=== PATIENT | male | born 1980 | race African-American/Black ===

== ENCOUNTER 2020-09-26 01:27 | Emergency (ER) | payer MEDICAID ==
[~2020-09-26] VITALS: Ht 177.8 cm; Wt 107.0 kg
[2020-09-26] MEDS ORDERED: FAMOTIDINE 20MG/2ML VIAL IV ONE (02:00)
[2020-09-26] MEDS ORDERED: SODIUM CHLORIDE 0.9% 1,000 ML IV ONE (02:00)
[2020-09-26] MEDS ORDERED: MAGNESIUM/ALUMINUM HYDROXIDE/SIMETHICONE 30ML UDC PO ONE (02:00)
[2020-09-26] MEDS ORDERED: ONDANSETRON HCL 4MG/2ML INJ IV ONE (02:00)
[2020-09-26] MEDS ORDERED: METOCLOPRAMIDE HCL 10MG/2ML VIAL IV ONE (03:00)
[2020-09-26 04:15] VITALS: BP 125/80
== END 2020-09-26 04:16 | disposition home or self-care (01) ==
LOC: ER 01:27
DX: A05.9 Bacterial foodborne intoxication, unspecified (principal); R11.2 Nausea with vomiting, unspecified; I10 Essential (primary) hypertension; G89.29 Other chronic pain; M54.9 Dorsalgia, unspecified; R10.13 Epigastric pain
CPT/HCPCS: 96361; 96374; 96375; 99284; J2405; J2765; J3490; J7030

== ENCOUNTER 2021-04-05 04:25 | Inpatient (IN) | payer MEDICARE ==
[~2021-04-05] VITALS: Ht 348 cm; Wt 107.0 kg
[2021-04-05 05:00] LABS: BASOPHILS % 0.6 % (0.0-2.0); EOSINOPHILS % 3.1 % (0.0-5.0); HEMATOCRIT. 43.7 % (42.0-52.0); HEMOGLOBIN. 14.8 g/dL (14.0-18.0); LYMPHOCYTES % 45.9 % (20.0-50.0); MEAN CORPUSCULAR HEMOGLOBIN 30.3 pg (28.0-32.0); MEAN CORPUSCULAR VOLUME 89.5 fL (80.0-94.0); MEAN PLATELET VOLUME 7.7 fl (7.4-10.4); NEUTROPHILS % 44.4 % (40.0-76.0); PLATELET 296 x1000/uL (130-400); RED BLOOD CELL COUNT 4.89 mill/uL (4.7-6.1); RED CELL DISTRIBUTION WIDTH 13.4 % (11.6-14.6)
[2021-04-05] MEDS ORDERED: IOHEXOL-350 100 ML BOTTLE ONE (05:09)
[2021-04-05 05:14] LABS: CHLORIDE 103 mEq/L (98-107)
[2021-04-05 05:18] LABS: PROTHROMBIN TIME 10.5 sec (9.6-11.0)
[2021-04-05 05:19] LABS: ETHANOL BLOOD < 10 mg/dL
[2021-04-05 05:22] LABS: LDL CHOLESTEROL 118 mg/dL (5-100)
[2021-04-05] MEDS ORDERED: ASPIRIN 325MG TABLET PO NR (06:00)
[2021-04-05 06:28] LABS: CLARITY URINE CLEAR (CLEAR); COLOR URINE YELLOW (YELLOW); KETONES URINE NEGATIVE (NEGATIVE); LEUKOCYTE ESTERASE URINE NEGATIVE (NEGATIVE); NITRITE URINE NEGATIVE (NEGATIVE); OCCULT BLOOD URINE NEGATIVE (NEGATIVE); PROTEIN URINE NEGATIVE (NEGATIVE); SPECIFIC GRAVITY URINE 1.028 (1.005-1.030); UROBILINOGEN URINE 0.2 E.U./dL (0.2-1.0)
[2021-04-05 06:39] LABS: *BENZODIAZEPINES SCREEN URINE NEGATIVE (NEGATIVE)
[2021-04-05 06:40] LABS: *BARBITURATES SCREEN URINE NEGATIVE (NEGATIVE); *COCAINE SCREEN URINE NEGATIVE (NEGATIVE); CANNABINOID URINE SCREEN NEGATIVE (NEGATIVE); METHADONE URINE SCREEN NEGATIVE (NEGATIVE); OPIATES URINE SCREEN PRESUMTIVE POSITIVE (NEGATIVE); PHENCYCLIDINE URINE SCREEN NEGATIVE (NEGATIVE)
[2021-04-05 06:41] LABS: *AMPHETAMINES SCREEN URINE NEGATIVE (NEGATIVE)
[2021-04-05 08:40] VITALS: BP 137/79
[2021-04-05 08:47] VITALS: BP 137/79
[2021-04-05 09:49] VITALS: BP 147/86
[2021-04-05] MEDS ORDERED: LOSARTAN POTASSIUM 50 MG TABLET PO SCH (10:00)
[2021-04-05] MEDS ORDERED: ENOXAPARIN 30MG/0.3ML SYR SUBCUT SCH (10:00)
[2021-04-05 11:55] VITALS: BP 134/87
[2021-04-05] MEDS ORDERED: ASPI-1406 MT (13:32)
[2021-04-05 14:00] VITALS: BP 144/90
[2021-04-05] MEDS ORDERED: ATORVASTATIN CALCIUM 40MG TABLET PO SCH (21:00)
[2021-04-06] MEDS ORDERED: ASPIRIN 81MG TABLET PO SCH (09:00)
== END 2021-04-05 15:00 | disposition left against medical advice (07) | DRG 199 ==
LOC: ER 04:25 → 3WST 05:53 → ENRESERV 06:43
PROVIDERS: ADMIT Internal Medicine; ATTEND Internal Medicine
DX: I16.0 Hypertensive urgency (principal); G45.9 Transient cerebral ischemic attack, unspecified; E78.5 Hyperlipidemia, unspecified; I10 Essential (primary) hypertension
CPT/HCPCS: 36415; 70496; 70498; 70551; 71045; 80053; 80305; 80320; 81003; 82962; 83721; 84484; 85025; 93005; 99291; J1650; Q9967; G0480